=== PATIENT | female | born 1990 | race Caucasian/White ===

== ENCOUNTER 2020-02-21 10:40 | Outpatient (CLI) | payer OTHER, SELFPAY ==
[2020-02-21 12:49] LABS: SARS-CoV-2 Ag Negative (Negative)
== END 2020-02-21 10:41 | disposition home or self-care (01) ==
LOC: CHSLAB 10:44
PROVIDERS: PCP Family Medicine; Visit Provider Family Medicine
DX: Z20.828 Contact with and (suspected) exposure to other viral communicable diseases (principal)
CPT/HCPCS: 87426

== ENCOUNTER 2021-01-15 09:14 | Outpatient (CLI) | payer OTHER, SELFPAY ==
[2021-01-15 09:24] LABS: Hematocrit 41.6 % (35.0-49.0); Mean Corpuscular HGB Conc 33.7 g/dL (32.0-36.0); Mean Corpuscular Hemoglobin 29.9 pg (27.0-31.0); Mean Corpuscular Volume 88.7 fL (78.0-102.0); Mean Platelet Volume 9.4 fl (9.2-11.8); Platelet Count Result 335 K/mm3 (150-420); Red Blood Count 4.69 M/mm3 (4.20-5.40); Red Cell Distribution Width 12.1 % (11.6-14.4); White Blood Count 6.9 K/mm3 (4.8-10.8)
[2021-01-15 10:01] LABS: Band Neutrophils Percent 0 % (0-6); Basophils Absolute Manual 0.13 K/mm3 (0-0.1); Basophils Percent Manual 2 % (0-1); Eosinophils Absolute Manual 0.82 K/mm3 (0.02-0.5); Eosinophils Percent Manual 12 % (1-6); Lymphocytes Percent Manual 29 % (18-44); Monocytes Absolute Manual 0.27 K/mm3 (0.1-0.90); Monocytes Percent Manual 4 % (3-9); Neutrophils Absolute Manual 3.65 K/mm3 (1.7-7.2); Neutrophils Percent Manual 53 % (46-73); Platelet Estimate Adequate (Adequate); Total Cells Counted 100
[2021-01-15 10:08] LABS: Alanine Aminotransferase 32 U/L (14-59); Albumin Level 3.6 g/dL (3.4-5.0); Alkaline Phosphatase 66 U/L (46-116); Anion Gap 10 mmol/L (8-16); Aspartate Amino Transferase 14 U/L (15-37); Bilirubin,Total 0.3 mg/dL (0.00-1.00); Blood Urea Nitrogen 13 mg/dL (7-18); Calcium 8.8 mg/dL (8.5-10.1); Carbon Dioxide 29 mmol/L (21-32); Chloride 103 mmol/L (98-108); Cholesterol 173 mg/dL (0-200); Estimated Glomerular Filt Rate > 60; Glucose 103 mg/dL (70-99); HDL Direct 46 mg/dL (40-60); LDL Cholesterol Calculated 98 mg/dL (<130); Osmolality Calculated 294 mOsm/kg (285-295); Potassium 3.7 mmol/L (3.5-5.1); Sodium 142 mmol/L (136-145); Total Protein 6.5 g/dL (6.4-8.2); Triglycerides 146 mg/dL (0-150)
[2021-01-15 10:31] LABS: Thyroid Stimulating Hormone Reflex 4.48 u/IU/mL (0.36-3.74)
[2021-01-15 10:37] LABS: Free T4 Free Thyroxine Reflex 0.85 ng/dL (0.76-1.46)
== END 2021-01-15 09:15 | disposition home or self-care (01) ==
LOC: CHSLAB 09:15
PROVIDERS: PCP Family Medicine; Visit Provider Family Medicine
DX: I10 Essential (primary) hypertension (principal)
CPT/HCPCS: 36415; 80053; 80061; 84439; 84443; 85025

== ENCOUNTER 2021-01-27 15:16 | Outpatient (NON) | payer OTHER, SELFPAY | END 2021-01-27 15:17 | disposition home or self-care (01) | PROVIDERS: Visit Provider Nurse Practitioner Family | DX: Z12.4 Encounter for screening for malignant neoplasm of cervix (principal); Z13.89 Encounter for screening for other disorder | CPT/HCPCS: 87491; 87591; 87624; 88175; G0145 ==

== ENCOUNTER 2022-11-05 12:11 | Outpatient (CLI) | payer OTHER, SELFPAY ==
[2022-11-05 12:26] LABS: Hematocrit 41.5 % (35.0-49.0); Hemoglobin 14.2 g/dL (12.0-15.0); Mean Corpuscular HGB Conc 34.2 g/dL (32.0-36.0); Mean Corpuscular Volume 87.6 fL (78.0-102.0); Mean Platelet Volume 9.7 fl (9.2-11.8); Platelet Count Result 310 K/mm3 (150-420); Red Blood Count 4.74 M/mm3 (4.20-5.40); Red Cell Distribution Width 12.6 % (11.6-14.4); White Blood Count 6.8 K/mm3 (4.8-10.8)
[2022-11-05 12:58] LABS: Alanine Aminotransferase 30 U/L (14-59); Albumin Level 3.6 g/dL (3.4-5.0); Alkaline Phosphatase 67 U/L (46-116); Anion Gap 13 mmol/L (8-16); Aspartate Amino Transferase 16 U/L (15-37); Bilirubin,Total 0.6 mg/dL (0.00-1.00); Blood Urea Nitrogen 11 mg/dL (7-18); Calcium 8.9 mg/dL (8.5-10.1); Carbon Dioxide 24 mmol/L (21-32); Chloride 103 mmol/L (98-108); Cholesterol 185 mg/dL (0-200); Estimated Glomerular Filt Rate > 60; Free T4 Free Thyroxine 0.98 ng/dL (0.76-1.46); Glucose 109 mg/dL (70-99); HDL Direct 50 mg/dL (40-60); LDL Cholesterol Calculated 104 mg/dL (<130); Osmolality Calculated 290 mOsm/kg (285-295); Potassium 3.8 mmol/L (3.5-5.1); Sodium 140 mmol/L (136-145); Thyroid Stimulating Hormone 3.48 uIU/mL (0.36-3.74); Total Protein 6.7 g/dL (6.4-8.2); Triglycerides 157 mg/dL (0-150)
[2022-11-05 13:29] LABS: Hemoglobin A1C 5.3 % (<5.7)
== END 2022-11-05 12:12 | disposition home or self-care (01) ==
LOC: CHSLAB 12:14
PROVIDERS: PCP Nurse Practitioner Family; Visit Provider Nurse Practitioner Family
DX: R73.9 Hyperglycemia, unspecified (principal); R79.89 Other specified abnormal findings of blood chemistry; Z68.43 Body mass index [BMI] 50.0-59.9, adult; E66.01 Morbid (severe) obesity due to excess calories
CPT/HCPCS: 36415; 80053; 80061; 83036; 84439; 84443; 85027

== ENCOUNTER 2024-07-26 10:47 | Outpatient (CLI) | payer OTHER, SELFPAY ==
[2024-07-26 11:16] LABS: Basophils Absolute Auto 0.05 K/mm3 (0.00-0.10); Basophils Percent Auto 0.5 % (0.0-1.0); Eosinophils Absolute Auto 0.02 K/mm3 (0.02-0.50); Eosinophils Percent Auto 0.2 % (1.0-6.0); Hematocrit 41.7 % (35.0-49.0); Hemoglobin 14.1 g/dL (12.0-15.0); Immature Granulocyte Absolute 0.03 K/mm3 (0.00-0.00); Immature Granulocyte Percent A 0.3 % (0.0-0.0); Lymphocytes Absolute Auto 2.55 K/mm3 (1.10-4.50); Lymphocytes Percent Auto 23.8 % (18.0-42.0); Mean Corpuscular HGB Conc 33.8 g/dL (32-36); Mean Corpuscular Hemoglobin 29.4 pg (27.0-31.0); Mean Corpuscular Volume 86.9 fL (78.0-102.0); Mean Platelet Volume 10.3 fl (9.2-11.8); Monocytes Absolute Auto 0.77 K/mm3 (0.10-0.90); Monocytes Percent Auto 7.2 % (2.0-11.0); Platelet Count Result 324 K/mm3 (150-420); Red Cell Distribution Width 12.9 % (11.6-14.4); White Blood Count 10.7 K/mm3 (4.8-10.8)
--- OUTSIDE RECORDS SUMMARY | 2024-07-26 11:42 | XMS_ITS | Clinical Summary ---
Author Organization [facility] Address [address] [place] [address] Phone Care Team Providers Care Painter Apprentice Name Role Phone Unavailable Unavailable Unavailable Reason for Visit and Chief Complaint referred by Dr. Dakotah Liu of [facility] in [facility] visit for: Lap Dimple Consult; US 07/11/17 Problems Includes: Problems addressed during this encounter and other active Problems Current Visit Onset Date Resolved Date Provider Conditio n Status Abdominal Pain 07/27/2017 DAKOTA GAMEZ DO Act soni Last Documented On 8 11:21AM ; [facility] Essential Hypertension 07/27/2017 DAKOTA Clements DO Active Last Documented On 8 11:19AM ; [facility] Plan of Treatment Laparoscopic Cholecystectomy under general anesthesia. - Last Documented On 07/28/2017 7:58AM ; [facility] Assessments Includes: Assessments from this encounter Findings Calculus of the gallbladder with chronic cholecystitis. - Last Documented On 07/28/2017 7:58AM ; [facility] Medical Equipment - Implanted Devices Includes: Current Devices No Medical Equipment Recorded Medications Includes: Medications discussed during this encounter and other current Medications Current Medications (continue as prescribed) AmLODIPine Besylate 5MG Oral Tablet 07/27/2017 Provi james: Diagnosis: 1 tab po daily Last Documented On 07/27/2017 10:59AM By MONY PITT LPN ; [facility] HydroCHLOROthiazide 12.5MG Oral Capsule 07/27/2017 P rovider: Diagnosis: 1 cap po daily Last Documented On 07/27/2017 10:59AM By MONY PITT LPN ; [facility] Lisinopril 20MG Oral Tablet 07/27/2017 Provider: Diagnosis: 1 tab po daily Last Documented On 07/27/2017 11:00AM By MONY PITT LPN ; [facility] Metoprolol Tartrate 25MG Oral Tablet 07/27/2017 Prov ider: Diagnosis: 1 tab po BID Last Documented On 07/27/2017 11:01AM By MONY PITT LPN ; [facility] Albuterol Sulfate (2.5 MG/3M L)0.083% Inhalation Nebulization solution 07/27/2017 Provider: Diagnosis: 2 puffs per MDI as needed Last Documented On 07/27/2017 11:14AM By MONY PITT LPN ; [facility] ZyrTEC Allergy 10MG Oral Tablet 07/27/2017 Provider: Diagnosis: 1 tab daily PRN Last Documented On 07/27/2017 11:17AM By MONY PITT LPN ; [facility] Medications Administered Includes: Administered Medications from this encounter No Administered Medications Recorded Vital Signs Includes: Vital Signs from this encounter Vital Name 07/27/2017 02:59P Blood Pressure Sitting L 125/99 Pulse Rate-Sitting (bpm) 84 Respiration Rate (breaths/min) 20 Temp-Tympanic (F) 99.1 Height (in) 64 Weight (lb) 311 Body Mass Index (kg/m2) 53.4 Body Surface Area (m2) 2.4 Note: NECK 38 cm Last Documented: On 07/27/2017 3:03PM ; [facility] Results Includes: Results discussed during this encounter No Results Recorded For Specified Dates History of Present Illness Includes: History of Present Illness from this encounter MELINDA FERNÁNDEZ is a 26 year old female. 2 year history of right upper quadrant pain associated with bloating. Has gradually increased the duration of the attacks. Most recent one sent her to the ER where she had a sonogram that showed Cholelithiasis. Referred for cholecystectomy. - Medication list reviewed. - No constipation. Social History Description Last Updated Not using alcohol 07/27/2017 Last Documented On 8 7:58AM ; [facility] Not using drugs 07/27/2017 Last Documented On 8 7:58AM ; [facility] Smoking status : Never smoker 07/27/2017 Last Documented On 8 7:58AM ; [facility] Procedures and Surgical History Includes: Procedures from this encounter Procedures Code Diagnosis Performing Provider Service L ocation Service Date reviewed an abdominal ultrasound 79271 Last Documented On 8 3:41PM ; [facility] Medical History Includes: Medical History addressed during this encounter Description Last Updated Taking medication 07/27/2017 Last Documented On 8 7:58AM ; [facility] Denies previous hospitalizations/ Surger ies 07/27/2017 Last Documented On 8 7:58AM ; [facility] History of hypertension 07/27/2017 Last Documented On 8 7:58AM ; [facility] Family History Includes: Family History addressed during this encounter Description Last Updated Father: Diabetes Mellitus ty pe 2, Kidney Cancer, Hypertension. Now ~Mother: Polycystic Kidney Disease, Hypertension ~Sister: PKD ~Paternal Grandfather: Lung Cancer, Now ~Paternal Grandmother: Stroke, Now 07/27/2017 Last Documented On 8 7:58AM ; [facility] Review of Systems Includes: Review of Systems from this encounter Systemic: No fever. Neck: No neck stiffness. Cardiovascular: No chest pain or discomfort. Pulmonary: No dyspnea. Gastrointestinal: No anorexia. Nausea. No vomiting, no jaundice, no melena, and no hematochezia. No diarrhea. Genitourinary: No dysuria. Mental Status Includes: Mental Status from this encounter No Mental Status Recorded Functional Status Includes: Functional Status from this encounter No Functional Status Recorded Physical Exam Includes: Physical Exam from this encounter Allergies Includes: Active Allergies Substance Type Reaction Onset Date Resolved Date Statu s Morphine Sulfate Intolerance 07/27/2017 Active Last Documented On 07/27/2017 3:52PM ; [facility] Note: Has never gotten the drug. Family told her it didn't work for them. Amoxicillin Allergy Skin Rashes / Eruption of skin, Hives / Urticaria 07/27/2017 Active Last Documented On 8 11:01AM ; [facility] Encounters Encounter Provider Location Date Check-In Time Check-Out Time Diagnosis CONSULTATION DAKOTA GAMEZ DO [facility] 07/28/19 18 2:37PM 3:37PM Assessment [use For S.o.a.p. Note Free Text] Clinical Notes Includes: Clinical Notes from this encounter No Clinical Notes Recorded
--- OUTSIDE RECORDS SUMMARY | 2024-07-26 11:42 | XMS_ITS | Clinical Summary ---
Author Organization [facility] Address [address] [place] [address] Phone Care Team Providers Care Wound Specialist Name Role Phone Unavailable Unavailable Unavailable Reason for Visit and Chief Complaint SURGERY IN HOSPITAL Problems Includes: Problems addressed during this encounter and other active Problems All Visits Onset Date Resolved Date Provider Condition S tatus Abdominal Pain 07/27/2017 DAKOTA GAMEZ DO Act soni Last Documented On 8 11:21AM ; [facility] Essential Hypertension 07/27/2017 DAKOTA Clements DO Active Last Documented On 8 11:19AM ; [facility] Plan of Treatment No Plan of Treatment Recorded Assessments Includes: Assessments from this encounter No Assessments Recorded Medical Equipment - Implanted Devices Includes: Current Devices No Medical Equipment Recorded Medications Includes: Medications discussed during this encounter and other current Medications Current Medications (continue as prescribed) AmLODIPine Besylate 5MG Oral Tablet 07/27/2017 Provi james: Diagnosis: 1 tab po daily Last Documented On 07/27/2017 10:59AM By MONY PITT LPN ; [facility] HydroCHLOROthiazide 12.5MG Oral Capsule 07/27/2017 P woodrowvider: Diagnosis: 1 cap po daily Last Documented On 07/27/2017 10:59AM By MONY PITT LPN ; [facility] Lisinopril 20MG Oral Tablet 07/27/2017 Provider: Diagnosis: 1 tab po daily Last Documented On 07/27/2017 11:00AM By MONY PITT LPN ; [facility] Metoprolol Tartrate 25MG Oral Tablet 07/27/2017 Prov ider: Diagnosis: 1 tab po BID Last Documented On 07/27/2017 11:01AM By MONY PITT LPN ; [facility] Albuterol Sulfate (2.5 MG/3M L)0.083% Inhalation Nebulization solution 07/27/2017 Provider: Diagnosis: 2 puffs per MDI as needed Last Documented On 07/27/2017 11:14AM By MONY PITT LPN ; [facility] ZyrTEC Allergy 10MG Oral Tablet 07/27/2017 Provider: Diagnosis: 1 tab daily PRN Last Documented On 07/27/2017 11:17AM By MONY PITT LPN ; [facility] Medications Administered Includes: Administered Medications from this encounter No Administered Medications Recorded Results Includes: Results discussed during this encounter No Results Recorded For Specified Dates History of Present Illness Includes: History of Present Illness from this encounter No History of Present Illness Recorded Social History No Social History Recorded - Smoking Status Unknown Medical History Includes: Medical History addressed during this encounter No Medical History Recorded Family History Includes: Family History addressed during this encounter No Family History Recorded Review of Systems Includes: Review of Systems from this encounter No Review of Systems Recorded Mental Status Includes: Mental Status from this encounter No Mental Status Recorded Functional Status Includes: Functional Status from this encounter No Functional Status Recorded Physical Exam Includes: Physical Exam from this encounter No Physical Exam Recorded Allergies Includes: Active Allergies Substance Type Reaction Onset Date Resolved Date Statu s Morphine Sulfate Intolerance 07/27/2017 Active Last Documented On 07/27/2017 3:52PM ; [facility] Note: Has never gotten the drug. Family told her it didn't work for them. Amoxicillin Allergy Skin Rashes / Eruption of skin, Hives / Urticaria 07/27/2017 Active Last Documented On 8 11:01AM ; [facility] Encounters Encounter Provider Location Date Check-In Time Check-Out Time Diagnosis SURGERY IN HOSPITAL DAKOTA GAMEZ [facility] 8 12:11PM 11:59PM Clinical Notes Includes: Clinical Notes from this encounter No Clinical Notes Recorded
--- OUTSIDE RECORDS SUMMARY | 2024-07-26 11:42 | XMS_ITS | Clinical Summary ---
Author Organization [facility] Address [address] [place] [address] Phone Care Team Providers Care Bottom Filler Name Role Phone Unavailable Unavailable Unavailable Reason for Visit and Chief Complaint POST OP VISIT Problems Includes: Problems addressed during this encounter and other active Problems All Visits Onset Date Resolved Date Provider Condition S tatus Abdominal Pain 07/27/2017 DAKOTA GAMEZ DO Act soni Last Documented On 8 11:21AM ; [facility] Essential Hypertension 07/27/2017 DAKOTA Clements DO Active Last Documented On 8 11:19AM ; [facility] Plan of Treatment No Plan of [...] By MONY PITT LPN ; [facility] HydroCHLOROthiazide 12.5MG Oral Capsule 07/27/2017 P woodrowvider: Diagnosis: 1 cap po daily Last Documented On 07/27/2017 10:59AM By MONY PITT LPN ; [facility] Lisinopril 20MG Oral Tablet 07/27/2017 Provider: Diagnosis: 1 tab po daily Last Documented On 07/27/2017 11:00AM By MONY PITT LPN ; [facility] Metoprolol Tartrate 25MG Oral Tablet 07/27/2017 Prov ider: Diagnosis: 1 tab po BID Last Documented On 07/27/2017 11:01AM By MONY PITT LPN ; [facility] Albuterol Sulfate (2.5 MG/3M L)0.083% Inhalation Nebulization solution 07/27/2017 Provider: Diagnosis: 2 puffs per MDI as needed Last Documented On 07/27/2017 11:14AM By MONY PITT LPN ; [facility] ZyrTEC Allergy 10MG Oral Tablet 07/27/2017 Provider: Diagnosis: 1 tab daily PRN Last Documented On 07/27/2017 11:17AM By MONY PITT LPN ; [facility] Medications Administered Includes: Administered Medications from [...] Taking medication 07/27/2017 Last Documented On 8 7:05AM ; [facility] Denies previous hospitalizations/ Surger ies 07/27/2017 Last Documented On 8 7:05AM ; [facility] History of hypertension 07/27/2017 Last Documented On 8 7:05AM ; [facility] Family History Includes: Family History addressed during this encounter Description Last Updated Father: Diabetes Mellitus ty pe 2, Kidney Cancer, Hypertension. Now ~Mother: Polycystic Kidney Disease, Hypertension ~Sister: PKD ~Paternal Grandfather: Lung Cancer, Now ~Paternal Grandmother: Stroke, Now 07/27/2017 Last Documented On 8 7:05AM ; [facility] Review of Systems Includes: Review of Systems [...] Active Last Documented On 07/27/2017 3:52PM ; [facility] Note: Has never gotten the drug. Family told her it didn't work for them. Amoxicillin Allergy Skin Rashes / Eruption of skin, Hives / Urticaria 07/27/2017 Active Last Documented On 8 11:01AM ; [facility] Encounters Encounter Provider Location Date Check-In Time Check-Out Time Diagnosis POST OP VISIT DAKOTA GAMEZ [facility] 8 1:05PM 11:59PM Clinical Notes Includes: Clinical Notes from this encounter No Clinical Notes Recorded
--- OUTSIDE RECORDS SUMMARY | 2024-07-26 11:43 | XMS_ITS | Clinical Summary ---
Author Organization [facility] Address [facility] [place] [address] Care Team Providers Care Site Superintendent Name Role Phone Dakotah Liu MD Primary Care Provider [phone] Allergies Active Allergy Reactions Criticality Noted Date Comments Amoxicillin Diarrhea,Rash,Swelling Low 08/15/2017 Morphine Other (see comment) 08/15/2017 Family intolerance but pt has never had Morphine Medications lisinopril 20 MG tabletIndicatio ns:Hypertension Take 20 mg by mouth daily. Indications: High Blood Pressure Disorder Active amlodipine 5 MG tabletIndicatio ns:Hypertension Take 5 mg by mouth daily. Indications: High Blood Pressure Disorder Active hydrochlorothia zide 12.5 MG capsuleIndicati ons:water pill Take 12.5 mg by mouth every morning. Indications: water pill Active metoprolol tartrate 25 MG tabletIndicatio ns:Hypertension Take by mouth 2 (two) times daily. Indications: High Blood Pressure Disorder Active fluticasone propionate 50 MCG/ACT nasal sprayIndication s:Nasal Congestion 1 spray by Nasal route daily. Indications: Stuffy Nose Active albuterol sulfate HFA (PROAIR HFA) 108 (90 Base) MCG/ACT inhaler Inhale 2 puffs into the lungs every 6 (six) hours as needed for Wheezing or Shortness of breath. Active calcium carbonate 500 MG chewable tablet Chew 2 tablets by mouth daily as needed for Heartburn. Active cetirizine 10 MG tabletIndicatio ns:seasonal allergies Take 10 mg by mouth daily. Indications: seasonal allergies Active docusate sodium 100 MG capsuleIndicati ons:Constipatio n Take 100 mg by mouth nightly. Indications: Constipation Active hydrocodone-queenie taminophen 5-325 MG tablet Take 1-2 tablets by mouth every 6 (six) hours as needed for Pain. 30 tablet 8 Active Active Problems No known active problems Family History Medical History Relation Comments Cancer Father Diabetes Father Hypertension Father Hypertension Mother Relation Status Comments Father Mother Alive Social History Tobacco Use Types Packs/Day Years Used Date Smoking Tobacco: Never Smokeless Tobacco: Never Alcohol Use Standard Drinks/Week Comments Yes 0 (1 standard drink = 0.6 oz pur e alcohol) rarely Comments Unknown Sex and Gender Information Value Date Recorded Sex Assigned at Not on file Legal Sex Female 3:13 PM CDT Gender Identity Not on file Sexual Orientation Not on file Last Filed Vital Signs Vital Sign Reading Time Taken Comments Blood Pressure 120/64 08/24/2017 10:21 AM CDT Pulse 80 08/24/2017 10:21 AM CDT Temperature 36.8 C (98.2 F) 08/16/2017 2:40 PM CDT Respiratory Rate 18 08/16/2017 4:00 PM CDT Oxygen Saturation 97% 08/16/2017 4:00 PM CDT Inhaled Oxygen Concentration - - Weight 134.2 kg (295 lb 13.7 oz) 08/16/2017 8:57 AM CDT Height 164 cm (5' 4.57 ) 08/16/2017 8:57 AM CDT Body Mass Index 49.9 08/16/2017 8:57 AM CDT Plan of Treatment Health Maintenance Due Date Last Done Comments Cervical Cancer Screening Pa p Smear (Age 30 to 64) Every 3 Years 1988 Annual Physical 09/17/1991 Hepatitis C 2006 DTaP, Tdap and Td Vaccines ( 1 - Tdap) 09/17/2007 Hepatitis B Vaccines (1 of 3 - 19+ 3-dose series) 09/17/2007 COVID-19 Vaccine (2023-2 5 season) 2023 Cervical Cancer Screening Pa p with HPV Testing (Age 30 to 64) Every 5 Years 01/27/2026 01/27/2021 Cervical Cancer Screening with HPV 01/27/2026 HPV Vaccines Aged Out No longer eligi ble based on patient's age to complete this topic Meningococcal B Vaccine Aged Out No l onger eligible based on patient's age to complete this topic Meningococcal Vaccine Aged Out No emigdio nico eligible based on patient's age to complete this topic Pneumococcal Vaccine: Pediat rics (0 to 5 Years) and At-Risk Patients (6 to 49 Years) Aged Out No longer eligi ble based on patient's age to complete this topic RSV Immunizations Under 20 Months Aged Out No longer eligible based on patient's age to complete this topic Procedures Procedure Name Priority Date/Time Associated Diagnosis Comments HUMAN PAPILLOMAVIRUS, HIGH-RISK TYPES Routine 01/27/2021 8:00 AM CDT from Last 3 Months or Most Recently Relevant to Health Maintenance Results * HUMAN PAPILLOMAVIRUS, HIGH-RISK TYPES (01/27/2021 8:00 AM CDT) SPEC DESCRIPTION CERVIX 01/31/20 2:48 PM CDT [facility] HPV DNA HIGH RISK NEGATIVE NEGATIVE 01/30/2021 6:53 PM CDT [facility] Comment:SEE CYTOLOGY REPORT 01/27/2021 8:00 AM CDT Sylvia Bazzi Cait SOFTWARE DESIGNER PATHOLOGY/CYTOLOGY ORDERA BLES Final Result [facility] [address] [place] [address], from Last 3 Months or Most Recently Relevant to Health Maintenance [place] [address] [place] [address] Care Teams Site Superintendent Relationship Specialty Start Date End Date Dakotah Liu MD [address] [place] [address] PCP - General FAMILY PRACTICE 08/15/17
--- OUTSIDE RECORDS SUMMARY | 2024-07-26 11:43 | XMS_ITS | Clinical Summary ---
Author Organization [facility] Address [address] [place] [address] Phone Care Team Providers Care Thermal Spray Operator Name Role Phone Unavailable Unavailable Unavailable Reason for Visit and Chief Complaint SICK VISIT Problems Includes: Problems addressed during this encounter and other active Problems All Visits Onset Date Resolved Date Provider Condition S tatus Abdominal Pain 07/27/2017 DAKOTA GAMEZ DO Act soni Last Documented On 8 11:21AM ; [facility] Essential Hypertension 07/27/2017 DAKOTA Clements DO Active Last Documented On 8 11:19AM ; [facility] Plan of Treatment No Plan of [...] 07/27/2017 10:59AM By MONY PITT LPN ; [facility] HydroCHLOROthiazide 12.5MG Oral Capsule 07/27/2017 P rovider: Diagnosis: 1 cap po daily Last Documented On 07/27/2017 10:59AM By MONY PITT LPN ; [facility] Lisinopril 20MG Oral Tablet 07/27/2017 Provider: Diagnosis: 1 tab po daily Last Documented On 07/27/2017 11:00AM By MONY PITT LPN ; [facility] Metoprolol Tartrate 25MG Oral Tablet 07/27/2017 Prov ider: Diagnosis: 1 tab po BID Last Documented On 07/27/2017 11:01AM By MONY PITT LPN ; [facility] Albuterol Sulfate (2.5 MG/3M L)0.083% Inhalation Nebulization solution 07/27/2017 Provider: Diagnosis: 2 puffs per MDI as needed Last Documented On 07/27/2017 11:14AM By MONY PITT LPN ; [facility] ZyrTEC Allergy 10MG Oral Tablet 07/27/2017 Provider: Diagnosis: 1 tab daily PRN Last Documented On 07/27/2017 11:17AM By MONY PITT LPN ; [facility] Medications Administered Includes: Administered Medications from [...] Active Last Documented On 07/27/2017 3:52PM ; [facility] Note: Has never gotten the drug. Family told her it didn't work for them. Amoxicillin Allergy Skin Rashes / Eruption of skin, Hives / Urticaria 07/27/2017 Active Last Documented On 8 11:01AM ; [facility] Encounters Encounter Provider Location Date Check-In Time Check- Out Time Diagnosis SICK VISIT FRANNIE KIM M.D. [facility] 1 9:15AM 9:50AM Clinical Notes Includes: Clinical Notes from this encounter No Clinical Notes Recorded
--- OUTSIDE RECORDS SUMMARY | 2024-07-26 11:43 | XMS_ITS ---
Author Organization [facility] [[email or web address]] Address [address] [place] [address] Phone Care Team Providers Care Intake Assessor Name Role Phone Unavailable Unavailable Unavailable Problems Includes: Active, inactive, and resolved Problems All Visits Onset Date Resolved Date Provider Condition S tatus Abdominal Pain 07/27/2017 DAKOTA GAMEZ DO Act soni Last Documented On 8 11:21AM ; [facility] Essential Hypertension 07/27/2017 DAKOTA Clements DO Active Last Documented On 8 11:19AM ; [facility] Plan of Treatment Findings Encounter Date Laparoscopic Cholecystectomy under general anesthesia CONSULTATION with DAKOTA GAMEZ DO 07/27/2017 Last Documented On 8 7:58AM ; [facility] Referrals To Diagnosis General Surgery 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 Needs cholecystectomy. Last Documented On 8 1:20PM ; [facility] [[email or web address]] Assessments Includes: Assessments for all patient encounters Findings Encounter Date Calculus of the gallbladder with chronic cholecystitis CONSULTATION with DAKOTA GAMEZ DO 07/27/2017 Last Documented On 8 7:58AM ; [facility] Medical Equipment - Implanted Devices Includes: Current and historical Devices No Medical Equipment Recorded Medications Includes: Current and historical Medications Current Medications (continue as prescribed) AmLODIPine Besylate 5MG Oral Tablet 07/27/2017 Provi james: Diagnosis: 1 tab po daily Last Documented On 07/27/2017 10:59AM By MONY PITT LPN ; [facility] HydroCHLOROthiazide 12.5MG Oral Capsule 07/27/2017 P rovider: Diagnosis: 1 cap po daily Last Documented On 07/27/2017 10:59AM By MONY PITT LPN ; [facility] Lisinopril 20MG Oral Tablet 07/27/2017 Provider: Diagnosis: 1 tab po daily Last Documented On 07/27/2017 11:00AM By MONY PITT LPN ; [facility] Metoprolol Tartrate 25MG Oral Tablet 07/27/2017 Prov ider: Diagnosis: 1 tab po BID Last Documented On 07/27/2017 11:01AM By MONY PITT LPN ; [facility] Albuterol Sulfate (2.5 MG/3M L)0.083% Inhalation Nebulization solution 07/27/2017 Provider: Diagnosis: 2 puffs per MDI as needed Last Documented On 07/27/2017 11:14AM By MONY PITT LPN ; [facility] ZyrTEC Allergy 10MG Oral Tablet 07/27/2017 Provider: Diagnosis: 1 tab daily PRN Last Documented On 07/27/2017 11:17AM By MONY PITT LPN ; [facility] Medications Administered Includes: Administered Medications in patient's chart No Administered Medications Recorded Results Includes: Results from 07/27/2023 through 07/26/2024 No Results Recorded For Specified Dates History of Present Illness History of Present Illness not supported for this document type No History of Present Illness Recorded Social History Description Last Updated Not using alcohol 07/27/2017 Last Documented On 8 7:58AM ; [facility] Not using drugs 07/27/2017 Last Documented On 8 7:58AM ; [facility] Smoking status : Never smoker 07/27/2017 Last Documented On 8 7:58AM ; [facility] Medical History Includes: Medical History in patient's chart Description Last Updated Taking medication 07/27/2017 Last Documented On 8 7:58AM ; [facility] Denies previous hospitalizations/ Surger ies 07/27/2017 Last Documented On 8 7:58AM ; [facility] History of hypertension 07/27/2017 Last Documented On 8 7:58AM ; [facility] Family History Includes: Family History in patient's chart Description Last Updated Father: Diabetes Mellitus ty pe 2, Kidney Cancer, Hypertension. Now ~Mother: Polycystic Kidney Disease, Hypertension ~Sister: PKD ~Paternal Grandfather: Lung Cancer, Now ~Paternal Grandmother: Stroke, Now 07/27/2017 Last Documented On 8 7:58AM ; [facility] Review of Systems Review of Systems not supported for this document type No Review of Systems Recorded Mental Status No Mental Status Recorded Functional Status No Functional Status Recorded Physical Exam Physical Exam not supported for this document type No Physical Exam Recorded Allergies Includes: Active, inactive, and resolved Allergies Substance Type Reaction Onset Date Resolved Date Statu s Morphine Sulfate Intolerance 07/27/2017 Active Last Documented On 07/27/2017 3:52PM ; [facility] Note: Has never gotten the drug. Family told her it didn't work for them. Amoxicillin Allergy Skin Rashes / Eruption of skin, Hives / Urticaria 07/27/2017 Active Last Documented On 8 11:01AM ; [facility] Clinical Notes Includes: Signed Clinical Notes starting from 04/30/2022 No Clinical Notes Recorded
--- OUTSIDE RECORDS SUMMARY | 2024-07-26 11:43 | XMS_ITS ---
Care Plan - [facility] Created on: July 26, 2024 KELIN FERNÁNDEZ : 1990 Sex: Female Author Organization [facility] Address [address] [place] [id number] Phone Care Team Providers Care Editing Internship Name Role Phone Unavailable Unavailable Unavailable
--- OUTSIDE RECORDS SUMMARY | 2024-07-26 11:43 | XMS_ITS | Clinical Summary ---
Author Organization [facility] Address [address] [place] [address] Phone Care Team Providers Care Visual Merchandiser Name Role Phone Unavailable Unavailable Unavailable Reason for Visit and Chief Complaint POST OP VISIT Problems Includes: Problems addressed during this encounter and other active Problems All Visits Onset Date Resolved Date Provider Condition S tatus Abdominal Pain 07/27/2017 DAKOTA GAMEZ DO Act soni Last Documented On 8 11:21AM ; [facility] Essential Hypertension 07/27/2017 DAKOTA Clements DO Active Last Documented On 8 11:19AM ; [facility] Plan of Treatment Referrals To Diagnosis General Surgery 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 Needs cholecystectomy. Last Documented On 8 1:20PM ; [facility] Assessments Includes: Assessments from this encounter No Assessments Recorded Medical Equipment - Implanted Devices Includes: Current Devices No Medical Equipment Recorded Medications Includes: Medications discussed during this encounter and other current Medications Current Medications (continue as prescribed) AmLODIPine Besylate 5MG Oral Tablet 07/27/2017 Provi james: Diagnosis: 1 tab po daily Last Documented On 07/27/2017 10:59AM By MONY PITT LPN ; [facility] HydroCHLOROthiazide 12.5MG Oral Capsule 07/27/2017 P rovider: Diagnosis: 1 cap po daily Last Documented On 07/27/2017 10:59AM By MONY PITT LPN ; [facility] Lisinopril 20MG Oral Tablet 07/27/2017 Provider: Diagnosis: 1 tab po daily Last Documented On 07/27/2017 11:00AM By MONY PITT LPN ; [facility] Metoprolol Tartrate 25MG Oral Tablet 07/27/2017 Prov ider: Diagnosis: 1 tab po BID Last Documented On 07/27/2017 11:01AM By MONY PITT LPN ; [facility] Albuterol Sulfate (2.5 MG/3M L)0.083% Inhalation Nebulization solution 07/27/2017 Provider: Diagnosis: 2 puffs per MDI as needed Last Documented On 07/27/2017 11:14AM By MONY PITT LPN ; [facility] ZyrTEC Allergy 10MG Oral Tablet 07/27/2017 Provider: Diagnosis: 1 tab daily PRN Last Documented On 07/27/2017 11:17AM By MONY PITT LPN ; [facility] Medications Administered Includes: Administered Medications from this [...] Taking medication 07/27/2017 Last Documented On 8 12:58PM ; [facility] Denies previous hospitalizations/ Surger ies 07/27/2017 Last Documented On 8 12:58PM ; [facility] History of hypertension 07/27/2017 Last Documented On 8 12:58PM ; [facility] Family History Includes: Family History addressed during this encounter Description Last Updated Father: Diabetes Mellitus ty pe 2, Kidney Cancer, Hypertension. Now ~Mother: Polycystic Kidney Disease, Hypertension ~Sister: PKD ~Paternal Grandfather: Lung Cancer, Now ~Paternal Grandmother: Stroke, Now 07/27/2017 Last Documented On 8 12:58PM ; [facility] Review of Systems Includes: Review [...] Active Last Documented On 07/27/2017 3:52PM ; [facility] Note: Has never gotten the drug. Family told her it didn't work for them. Amoxicillin Allergy Skin Rashes / Eruption of skin, Hives / Urticaria 07/27/2017 Active Last Documented On 8 11:01AM ; [facility] Encounters Encounter Provider Location Date Check-In Time Check- Out Time Diagnosis POST OP VISIT DAKOTA GAMEZ DO [facility] 8 12:46PM 1:34PM Clinical Notes Includes: Clinical Notes from this encounter No Clinical Notes Recorded
[2024-07-26 12:23] LABS: Alanine Aminotransferase 43 U/L (14-59); Albumin Level 3.6 g/dL (3.4-5.0); Alkaline Phosphatase 62 U/L (46-116); Anion Gap 9 mmol/L (4-12); Bilirubin,Total 0.5 mg/dL (0.00-1.00); Blood Urea Nitrogen 13 mg/dL (7-18); Calcium 9.5 mg/dL (8.5-10.1); Carbon Dioxide 28 mmol/L (21-32); Chloride 105 mmol/L (98-108); Estimated Glomerular Filt Rate > 60; Glucose 97 mg/dL (70-99); Osmolality Calculated 294 mOsm/kg (285-295); Sodium 142 mmol/L (136-145); Total Protein 6.9 g/dL (6.4-8.2)
[2024-07-26 12:32] LABS: Aspartate Amino Transferase 23 U/L (15-37); Potassium 3.9 mmol/L (3.5-5.1)
== END 2024-07-26 10:48 | disposition home or self-care (01) ==
LOC: CHSCARD 10:50
PROVIDERS: PCP Nurse Practitioner Family; Visit Provider Family Medicine
DX: J45.50 Severe persistent asthma, uncomplicated (principal)
CPT/HCPCS: 36415; 80053; 85025